=== PATIENT | female | born 1940 | race Caucasian/White ===

== ENCOUNTER → 2017-02-07 | Outpatient (CLI) | payer MEDICARE, MEDICAID ==
[~2017-02-07] MED LIST: ASPIRIN 32325 MG/TA1 PO; BREO IH; BYSTOLIC5 MG PO; CLEOCIN HC150 MG/CAP PO; CLEOCIN HCL300 MG PO; CO-Q1060 MG PO; DULERA1 ARO IH; FLONASE NASAL S16 GM NS; FLOVENT 44MCG I13 GM IH; LEVAQUIN 5500 MG/TA1 PO; LEVAQUIN 750MG750 M1 PO; MICARDIS HCT 121 TA1 PO; NATURE'S BLEND1 TA9 PO; NO HOME MEDICATIONS; NORVASC 5MG5 MG/TAB PO; PEPCID 20MG TAB20 MG PO; PLAVIX 75MG TAB75 MG PO; PRAVACHOL 40MG40 MG PO; PREDNISONE10 MG PO; PREDNISONE20 MG PO; PRELONE15 MG/5 ML PO; PRESERVISION1 SGL PO; PRIL40 PO; PRILOTC PO; PROAIR HFA0.09 MG/AC IH; PROVENTIL0.09 MG/A1 IH; RAYOS1 MG PO; RT SPIRIVA18 MCG IH; ZITHROMAX Z PA250 MG PO; ZOCOR 10MG10 MG PO; ZOCOR5 MG PO
== END ==
LOC: COL.RAD 07:48
DX: J32.4 Chronic pansinusitis (principal)

== ENCOUNTER → 2017-02-26 | Outpatient (CLI) | payer MEDICARE, MEDICAID | LOC: ZCOL.LAB 15:44 | DX: J32.4 Chronic pansinusitis (principal) ==

== ENCOUNTER 2017-10-18 08:26 | Day surgery (SDC) | payer MEDICARE, MEDICAID ==
[~2017-10-18] VITALS: Ht 162.6 cm; Wt 95.6 kg
[~2017-10-18 08:26] MED LIST changes: -CO-Q1060 MG PO; +FERROUS SU325 MG/TAB PO; +LUTEIN6 MG PO; +MEDROL 4MG DOSPA4 MG PO; +MUCINEX1200 MG PO; +NORCO 325 MG-51 TAB PO; +OMNICEF 300MG300 MG PO; +THE MEDICINE S200 M2 PO
[2017-10-18] MEDS ORDERED: OCUVITE1 TA1 PO (08:45)
[2017-10-18 09:06] VITALS: BP 128/73; PULSE 68; TEMP 97.3
[2017-10-18 10:15] VITALS: BP 137/67; PULSE 71; TEMP 97.7
[2017-10-18 10:30] VITALS: BP 129/71; PULSE 69
== END 2017-10-18 10:45 | disposition home or self-care (01) ==
LOC: SDCO 08:26
DX: K22.2 Esophageal obstruction (principal); K22.70 Barrett's esophagus without dysplasia; K44.9 Diaphragmatic hernia without obstruction or gangrene; K21.9 Gastro-esophageal reflux disease without esophagitis; E78.00 Pure hypercholesterolemia, unspecified; I10 Essential (primary) hypertension; J44.9 Chronic obstructive pulmonary disease, unspecified; Z90.710 Acquired absence of both cervix and uterus; Z88.4 Allergy status to anesthetic agent; Z86.73 Personal history of transient ischemic attack (TIA), and cerebral infarction without residual deficits
CPT/HCPCS: C1769; J2405; J2704; J3301; J7030

== ENCOUNTER 2017-12-16 14:56 | Outpatient (CLI) | payer MEDICARE, MEDICAID ==
[~2017-12-16] VITALS: Ht 162.6 cm; Wt 94.4 kg
[~2017-12-16 14:56] MED LIST changes: +OCUVITE1 TA1 PO
[2017-12-16 15:31] VITALS: BP 124/70; PULSE 82; TEMP 98
== END 2017-12-16 16:33 | disposition hospice, inpatient (51) ==
LOC: EUO 14:56
DX: M81.0 Age-related osteoporosis without current pathological fracture (principal); R50.9 Fever, unspecified; M79.1 Myalgia
CPT/HCPCS: J3489

== ENCOUNTER → 2018-05-09 | Outpatient (CLI) | payer MEDICARE, MEDICAID | LOC: ZCOL.LAB 16:18 | DX: J32.9 Chronic sinusitis, unspecified (principal) ==

== ENCOUNTER 2018-08-08 10:53 | Inpatient (IN) | payer MEDICARE, MEDICAID ==
[~2018-08-08] VITALS: Ht 162.6 cm; Wt 83.6 kg
[2018-08-08 11:52] VITALS: BP 117/56; PULSE 109; TEMP 98.1
[2018-08-08] MEDS ORDERED: BREO (12:39)
[2018-08-08] MEDS ORDERED: SALINE 45 ML45 ML NS (12:42)
--- NOTE | 2018-08-08 13:00 | NUR ---
MD Nena and NINOSKA Hoffman notified of pt arrival. VORB for 2L NasalCanula for SpO2 of 87% on room-air.
[2018-08-08 14:49] LABS: BASO # 0.1 (0.0-0.2); BASO % 0.4 % (0.0-2.0); GRAN # 16.4 (1.4-6.5); GRAN % 85.9 % (42.2-75.2); HEMATOCRIT 39.1 % (37.0-47.0); HEMOGLOBIN 12.3 g/dl (12.5-16.0); LYMPH # 1.4 (1.2-3.4); LYMPH % 7.4 % (20.0-51.0); MEAN CELL VOLUME 77 fl (80.0-100.0); MEAN CORPUSCULAR HEMOGLOBIN 24 pg (27.0-31.0); MEAN CORPUSCULAR HGB CONC 32 g/dl (33.0-37.0); MEAN PLATELET VOLUME 9.6 fl (7.4-10.4); MONO # 1.1 (0.1-0.6); MONO % 5.6 % (1.7-9.3); PLATELET COUNT 307 K/mm3 (130-400); RED BLOOD COUNT 5.09 M/mm3 (4.10-5.30); REDCELL DISTRIBUTION WIDTH-CV 18.3 % (11.5-14.5)
[2018-08-08 14:59] LABS: ALBUMIN 3.6 gm/dL (3.5-5.0); BILIRUBIN,TOTAL 0.7 mg/dL (0.0-1.0); CALCIUM 8.7 mg/dL (8.4-10.2); CREATININE, serum 1.1 mg/dL (0.52-1.25)
[2018-08-08 16:53] VITALS: BP 101/63; PULSE 107; TEMP 99.7
--- NOTE | 2018-08-08 17:59 | NUR ---
Pt off unit for CT scan
--- NOTE | 2018-08-08 19:53 | NUR ---
PT IS IN ISOLATION SO WE CANNOT USE OUR ADVAIR SO PT SAID SHE WOULD HAVE SOMEONE BRING IN HER BREO.
[2018-08-08 20:09] VITALS: BP 107/52; PULSE 105; TEMP 98.8
[2018-08-08 23:15] VITALS: BP 101/52; PULSE 104; TEMP 99.4
[2018-08-09 04:25] VITALS: BP 111/54; PULSE 100; TEMP 98.1
--- NOTE | 2018-08-09 05:09 | NUR ---
PT HAS TOLERATED CARES WELL THIS NOC. VOICED COMPLAINT ABOUT HAVING STUFFY NOSE AND WANTING SOME SALINE SPRAY FOR NOSE, WILL BRING UP TO HOSPITALIST AT SOME POINT. NO OTHER ISSUES OR CONSERNS VOICED. IV FLUIDS INFUSING AND RECEIVEING ABX SCHEDULED. IV INFUSING WITHOUT ISSUE. NO C/O PAIN VOICED. O2 SATS HAVE BEEN AROUND 92-94% ON 1-2 OF O2, NO LABORED BREATHING NOTED. NO FEVERS NOTED THIS SHIFT.
--- NOTE | 2018-08-09 06:26 | NUR ---
UPON ENTERING PT ROOM THIS AM, PT SITTING ON EDGE OF BED CAUGHING AND SPITTING MUCUS. PT STATED TO THIS NURSE THAT SHE COUGHED SOMETHING UP. THIS NURSE COLLECTED SPECIMIN IN CONTAINER. ABOUT A QUARTER SIZED CHUNK THAT IS BROWN AND HARD COLLECTED, SPECIMEN WAS COVERED IN YELLOW MUCUS.
[2018-08-09 07:53] VITALS: BP 111/57; PULSE 95; TEMP 98.8
[2018-08-09 08:38] LABS: BASO # 0.1 (0.0-0.2); BASO % 0.6 % (0.0-2.0); EOS % 0.3 % (0-4.0); GRAN # 12.9 (1.4-6.5); GRAN % 81.9 % (42.2-75.2); HEMOGLOBIN 10.9 g/dl (12.5-16.0); LYMPH # 1.5 (1.2-3.4); LYMPH % 9.4 % (20.0-51.0); MEAN CELL VOLUME 78 fl (80.0-100.0); MEAN CORPUSCULAR HEMOGLOBIN 24 pg (27.0-31.0); MEAN CORPUSCULAR HGB CONC 31 g/dl (33.0-37.0); MEAN PLATELET VOLUME 10.1 fl (7.4-10.4); MONO # 1.1 (0.1-0.6); MONO % 7.1 % (1.7-9.3); PLATELET COUNT 296 K/mm3 (130-400); RED BLOOD COUNT 4.49 M/mm3 (4.10-5.30); REDCELL DISTRIBUTION WIDTH-CV 18.3 % (11.5-14.5)
[2018-08-09 08:39] LABS: HEMATOCRIT 34.8 % (37.0-47.0)
[2018-08-09 08:41] LABS: CREATININE, serum 0.88 mg/dL (0.52-1.25); POTASSIUM 3.5 mmol/L (3.4-5.0)
--- NOTE | 2018-08-09 10:32 | NUR ---
Assessment complete.patient awake,a/ox3.exp wheezes to right lung.denies pain or discomfort at this time.pt has intermittent coughing.IVF infusing.reports improved appetite.remains opn droplet precaution for RVP pending. patient denies any other needs at this time.call light in reach
[2018-08-09 11:43] VITALS: BP 103/60; PULSE 93; TEMP 98.5
--- NOTE | 2018-08-09 13:11 | NUR ---
Chaplain dumont and offered support with patient.
--- NOTE | 2018-08-09 13:21 | NUR ---
SW met with patient about discharge plans. Patient lives independently at home by herself but her daughter lives close by. Patient's PCP is Dr Jinny Ley and she obtains prescriptions from [facility]. Patient does not use any home health services or DME. Patient does not have a DPOA but would like to complete form. SW provided. SW will return when patient is ready to sign. SW does not anticipate any discharge needs.
[2018-08-09 16:24] VITALS: BP 126/67; PULSE 104; TEMP 99.5
--- NOTE | 2018-08-09 18:37 | NUR ---
pt resting in bed at this time. Iv antibiotics infusing. consulted.pt remains on droplet precaution for RVP pending.continues to have intermittent productive cough.reports sputum is clear.oxygen at 2l/nc.will continue to monitor.call light in reach
--- NOTE | 2018-08-09 18:57 | NUR ---
report given to BARRY Land
--- NOTE | 2018-08-09 19:44 | NUR ---
PT HAS BEEN AMBULATING IN ROOM. PT WAS SITTING IN RECLINER AND HAS GOTTEN IN BED. HOB ELEVATED TO 30 DEGREE ANGLE. PT DENIES PAIN OR DISCOMFORT AT THIS TIME. NO NEEDS AND CALL LIGHT WITHIN REACH.
[2018-08-09 19:55] VITALS: BP 129/60; PULSE 107; TEMP 98.8
[2018-08-09 23:40] VITALS: BP 107/45; PULSE 101; TEMP 100.5
--- NOTE | 2018-08-10 00:35 | NUR ---
PT HAD TEMP OF 100.5, TYLENOL GIVEN FOR FEVER. PT GOT UP TO USE THE BATHROOM AND THEN WENT BACK TO BED. AMBULATED WITHOUT ASSISTED DEVICE AND GAIT WAS STEADY. PT DENIES ANY PAIN OR DISCOMFORT. CALL LIGHT WITHIN REACH.
[2018-08-10 02:28] VITALS: TEMP 98.4
[2018-08-10 05:18] VITALS: BP 106/46; PULSE 83; TEMP 97.9
--- NOTE | 2018-08-10 06:35 | NUR ---
PT HAS BEEN SLEEPING WELL SINCE GIVEN COUGH MEDICATION. PT WAS GIVEN HER MORNING MEDICATION AND ADVISED THAT SHE FINALLY GOT TO SLEEP WITH NO PROBLEMS. PT DENIES PAIN OR DISCOMFORT, RESP EVEN AND UNLABORED, CALL LIGHT WITHIN REACH.
[2018-08-10 08:11] VITALS: BP 125/57; PULSE 93; TEMP 98.6
[2018-08-10 09:13] LABS: BASO # 0.1 (0.0-0.2); BASO % 0.5 % (0.0-2.0); EOS # 0.1 (0.0-0.7); EOS % 0.9 % (0-4.0); GRAN # 10.3 (1.4-6.5); GRAN % 76.2 % (42.2-75.2); HEMOGLOBIN 10.8 g/dl (12.5-16.0); LYMPH % 14.8 % (20.0-51.0); MEAN CELL VOLUME 78 fl (80.0-100.0); MEAN CORPUSCULAR HEMOGLOBIN 24 pg (27.0-31.0); MEAN CORPUSCULAR HGB CONC 31 g/dl (33.0-37.0); MEAN PLATELET VOLUME 9.8 fl (7.4-10.4); MONO # 0.9 (0.1-0.6); MONO % 6.9 % (1.7-9.3); PLATELET COUNT 282 K/mm3 (130-400); RED BLOOD COUNT 4.47 M/mm3 (4.10-5.30); REDCELL DISTRIBUTION WIDTH-CV 18.2 % (11.5-14.5)
[2018-08-10 09:22] LABS: HEMATOCRIT 34.8 % (37.0-47.0)
[2018-08-10 09:26] LABS: CREATININE, serum 0.8 mg/dL (0.52-1.25); POTASSIUM 3.2 mmol/L (3.4-5.0)
--- NOTE | 2018-08-10 09:34 | NUR ---
Assessment complete.patient awake,a/ox3.denies pain or discomfort at this time.reports intermittent cough.oxygen at 3l/nc.exp wheezes throughout.ivf fluids infusing.Incentive spirometer at bedside.education provided on using it and how often-pt voiced understanding.patient denies any other needs at this time.will continue monitor.
[2018-08-10 10:31] LABS: MAGNESIUM 2.3 mg/dL (1.6-2.3)
[2018-08-10 11:21] VITALS: BP 131/58; PULSE 88; TEMP 98.6
--- NOTE | 2018-08-10 13:10 | NUR ---
pt resting in recliner.c/o of SOB with exertion.encouraged patient to call for help and keep oxygen on at all times.pottasium replaced.IVF discontinued.will continue to monitor.call light in reach
[2018-08-10 16:59] VITALS: BP 128/66; PULSE 96; TEMP 102.7
--- NOTE | 2018-08-10 17:56 | NUR ---
PT HAD TEMP OF 102.5.PRN TYLENOL GIVEN.WILL REASSESS.
--- NOTE | 2018-08-10 19:18 | NUR ---
PT RESTING IN RECLINER.REPORT GIVEN TO BARRY BILLINGSLEY.PT DENIES NEEDS.CALL LIGHT IN REACH
--- NOTE | 2018-08-10 19:18 | NUR ---
Report received from Angelina REDDY. Resting in bed. Denies needs. Call light in reach.
[2018-08-10 19:46] VITALS: BP 130/60; PULSE 97; TEMP 97.6
--- NOTE | 2018-08-10 21:10 | NUR ---
Sitting at bedside. Assessment complete. Right lower lobe crackles otherwise clear. Heart sounds normal, tachycardic. Bowels active x4. No edema noted at this time. Reports shortness of breath with ambulation. Denies pain. INT to right forearm flushes well without complications. Denies pain. Denies needs at this time. Call light in reach.
--- NOTE | 2018-08-10 23:41 | NUR ---
Resting in bed. Denies needs. Denies pain. Call light in reach.
--- NOTE | 2018-08-11 01:10 | NUR ---
Resting in bed asleep. Call light in reach.
[2018-08-11 02:39] VITALS: BP 125/57; PULSE 94; TEMP 98.6
--- NOTE | 2018-08-11 04:25 | NUR ---
Resting in bed. Denies needs. Call light in reach.
--- NOTE | 2018-08-11 06:05 | NUR ---
Patient called for water. Upon arrival in room, patient states "I am ready to be with Maikol." Questioned patient on status. Patient stated entire left lung "hurts" and having shortness of air at this time. Patient 94% on 3 liters of oxygen. Crackles in left lung heard in all posada. Respiratory, Crystal contacted for breathing treatment at this time. Will monitor and pass on information to next shift.
--- NOTE | 2018-08-11 06:40 | NUR ---
Report given to BARRY Christopher. Patient resting in bed. Continues to report left lung pain after breathing treatment. Otherwise uneventful night. Slept well throughout night. Denies other needs at this time. Request to see Dr. Torres this AM. Call light in reach.
[2018-08-11 07:42] VITALS: BP 130/70; PULSE 99; TEMP 98.6
--- NOTE | 2018-08-11 08:28 | NUR ---
Pt lying in bed complaining of shortness of breath, put head of bed up. Wheezes auscultated on expiration. Denies any pain right now, said in the middle of the night she had pain to her left lung when she repositioned. Completed morning assessment and administered medication. Pt denies wanting to eat any food. Call light in reach.
[2018-08-11 11:56] VITALS: BP 142/70; PULSE 94; TEMP 98.1
--- NOTE | 2018-08-11 12:35 | NUR ---
First visit from the entry level programmer. No needs right now.
--- NOTE | 2018-08-11 12:36 | NUR ---
Follow up visit from the core dropper. Chaplain dumont with patient.
[2018-08-11 15:19] VITALS: BP 134/68; PULSE 99; TEMP 98.2
--- NOTE | 2018-08-11 18:33 | NUR ---
Pt lying in bed with eyes closed, awakens to verbal stimuli. Breathing is even and unlabored while resting. Pt denies any needs, denied wanting to order food. Advised pt to maybe order a small snack for later in the night. Pt Call light in reach.
[2018-08-11 19:18] VITALS: BP 138/65; PULSE 94; TEMP 97.7
[2018-08-11 23:29] VITALS: BP 133/73; PULSE 94; TEMP 97.7
[2018-08-12 03:28] VITALS: BP 152/82; PULSE 87; TEMP 97.7
--- NOTE | 2018-08-12 04:11 | NUR ---
PT HAD UNEVENTFUL NOC. PT REMAINS HAVING C/O GI UPSET AND LOOSE STOOLS. SCHEDULED MEDS GIVEN, NO NEED FOR PRN MEDS VOICED OVER NIGHT. PT DID INQUIRE ABOUT 6-MP MED, NOTIFIED PT THAT AT THIS TIME IT HASNT BEEN STARTED. NO OTHER QUESTIONS OR CONSERNS VOICED OVERNIGHT.
--- NOTE | 2018-08-12 04:16 | NUR ---
PT HAD UNEVENTFUL NOC. NO C/O PAIN. APPEARED TO HAVE SLEPT WELL. IV ABX INFUSING ORDERED WITHOUT ISSUES. NO QUESTIONS OR CONSERNS VOICED OVER NOC. PLEASENT AND COOPERATIVE WITH CARES. PT REMAINS ON 2L O2 THIS SHIFT.
[2018-08-12 07:50] VITALS: BP 137/69; PULSE 84; TEMP 97.9
[2018-08-12 07:54] LABS: BASO % 0.3 % (0.0-2.0); EOS % 0.1 % (0-4.0); GRAN # 7.6 (1.4-6.5); GRAN % 75.8 % (42.2-75.2); HEMOGLOBIN 10.8 g/dl (12.5-16.0); LYMPH # 1.4 (1.2-3.4); LYMPH % 14.3 % (20.0-51.0); MEAN CELL VOLUME 78 fl (80.0-100.0); MEAN CORPUSCULAR HEMOGLOBIN 24 pg (27.0-31.0); MEAN CORPUSCULAR HGB CONC 31 g/dl (33.0-37.0); MEAN PLATELET VOLUME 9.6 fl (7.4-10.4); MONO # 0.7 (0.1-0.6); MONO % 6.8 % (1.7-9.3); PLATELET COUNT 346 K/mm3 (130-400); RED BLOOD COUNT 4.44 M/mm3 (4.10-5.30); REDCELL DISTRIBUTION WIDTH-CV 18.2 % (11.5-14.5)
[2018-08-12 07:56] LABS: CALCIUM 8.4 mg/dL (8.4-10.2); CREATININE, serum 0.86 mg/dL (0.52-1.25); POTASSIUM 3.4 mmol/L (3.4-5.0)
[2018-08-12 08:03] LABS: HEMATOCRIT 34.5 % (37.0-47.0)
--- NOTE | 2018-08-12 11:04 | NUR ---
Assessment completed, alert/oriented, vital signs stable, stil on IV abx and has been Afebrile/ talks about switching to PO abx, she reports feeling better and breathing is better, lungs still diminished with fine crackles, still requiring supplemental oxygen, heart RRR/distal pulses are palpable, working with PT/OT, he is up in the chair, denies other needs at this time
[2018-08-12 12:16] VITALS: BP 141/67; PULSE 87; TEMP 97.4
--- NOTE | 2018-08-12 14:11 | NUR ---
RA SPO2 85% PLACED ON 1 LPM NC/
--- NOTE | 2018-08-12 15:12 | NUR ---
LAZARO and LAZARO student met with the patient to review discharge plan. The patient reports that she still plans to return home upon discharge. The patient reports that PT has come to meet with her, but that she has not worked with them yet. SW encouraged the patient to work with PT for recommendations. The patient also completed a DPOA-HC. She designated her daughters. LAZARO and LAZARO student witnessed the patient sign. The patient was provided with the original and some copies. A copy was placed in the patient's chart. The patient is also currently requiring oxygen. LAZARO to continue to follow.
[2018-08-12 15:53] VITALS: BP 138/72; PULSE 94; TEMP 98.3
--- NOTE | 2018-08-12 19:01 | NUR ---
Report received from BARRY Johnson. Resting bed. Denies needs. Call light in reach.
[2018-08-12 19:45] VITALS: BP 135/66; PULSE 93; TEMP 97.6
--- NOTE | 2018-08-12 20:25 | NUR ---
Patient sitting at bedside. Assessment complete. All lung posada dimished with expiratory wheezing present. Patient current on 1 liter nasal cannula. Denies shortness of breath. Heart sounds normal. Bowels active x4. Pulses strong throughout. No edema noted. Denies pain. IV in left wrist leaking when flushed. Changed to right forearm. Denies needs at this time. Call light in reach. Provided patient with warm wipes for sponge bath at this time.
--- NOTE | 2018-08-12 22:51 | NUR ---
Resting in bed. Denies needs. Call light in reach.
[2018-08-13] VITALS (7 sets, daily range): BP systolic 114–151; BP diastolic 53–74; PULSE 78–90; TEMP 97.2–98.9
--- NOTE | 2018-08-13 04:06 | NUR ---
Resting in bed. Denies needs. Call light in reach.
--- NOTE | 2018-08-13 06:25 | NUR ---
Patient had uneventful night. Resting in bed this AM. Denies needs. Call light in reach.
--- NOTE | 2018-08-13 07:14 | NUR ---
Report given to BARRY Fernández.
--- NOTE | 2018-08-13 09:30 | NUR ---
Pt is A+OX3, pleasant, denies SOB and pain, 0.5 L oxygen applied via NC. Lungs relatively clear. IV site to RFA free of redness, swelling. Pt c/o small amount of white sputum with coughing. Afebrile. Call gregg noguera reach
--- NOTE | 2018-08-13 16:41 | NUR ---
LAZARO and SW student met with the patient and patient's daughter to discuss physical therapies recommendation of outpatient therapy. The patient reports that she has received outpatient therapy at [facility] in the past, but may be interested in swing bed now at [facility] upon discharge. The patient reports that she would like to discuss this option with Dr. Torres in the morning before making a final decision. SW to follow up with the patient tomorrow and continue to follow.
--- NOTE | 2018-08-13 18:43 | NUR ---
Report given to Pearl REDDY, pt denies needs, 0.5 liter oxygen applied via NC, she denies SOB, vitals stable through shift, pt had many visitors and walked about room independnetnly. Call gregg clark
--- NOTE | 2018-08-13 18:54 | NUR ---
Report received from BARRY Fernández.
--- NOTE | 2018-08-13 19:15 | NUR ---
Resting in bed. Assessment complete. Left lower lobe crackles, otherwise clear. Heart sounds normal. Bowels active x4. Pulses strong. Bilateral lower leg edema +1, has feet dangling out of bed. Educated patient to elevate legs. Denies pain. Provided shampoo to wash hair. Denies other needs. Call light in reach.
[2018-08-14] VITALS (8 sets, daily range): BP systolic 100–153; BP diastolic 57–89; PULSE 74–122; TEMP 97.3–99.4
--- NOTE | 2018-08-14 00:33 | NUR ---
Resting in bed. Call light in reach.
--- NOTE | 2018-08-14 02:20 | NUR ---
Resting in bed. Denies needs. call light in reach.
[2018-08-14 06:37] LABS: CALCIUM 8.3 mg/dL (8.4-10.2); CREATININE, serum 0.74 mg/dL (0.52-1.25)
--- NOTE | 2018-08-14 07:25 | NUR ---
Resting in bed this AM. Assessment complete. Right lower lobe crackles, otherwise clear. Heart sounds normal. Bowels active x4. Pulses strong throughout. No edema noted. Denies pain at this time. Denies needs. Call light in reach.
[2018-08-14] MEDS ORDERED: CLEOCIN HCL300 MG PO (10:01)
[2018-08-14] MEDS ORDERED: PREDNISONE10 MG PO (10:03)
[2018-08-14] MEDS ORDERED: INCRUSE EL62.5 MCG/A IH (10:04)
--- NOTE | 2018-08-14 12:53 | NUR ---
Report given to BARRY Joshi. Up to restroom at this time. Denied needs.
--- NOTE | 2018-08-14 13:15 | NUR ---
LAZARO and LAZARO student attended clinical rounds. The hospitalist discussed swing bed vs home. The patient reports that she would be interested in swing bed. LAZARO and LAZARO student then followed up with the patient. LAZARO discussed options and presented and explained the patient choice form. The patient preferred [facility]. Patient choice form signed by the patient and she was provided a copy. LAZARO contacted Stacey at [facility] for referral. SW awaiting their screening.
--- NOTE | 2018-08-14 13:40 | NUR ---
Primary nurse was assisted with [phone] patient care by [facility] student Yasmin Guzman and [facility] instructor Carolyn Knapp RN-.
--- NOTE | 2018-08-14 13:41 | NUR ---
Reported off to primary RN at [phone]
[2018-08-14] MEDS ORDERED: K-TAB20 PO (14:38)
--- NOTE | 2018-08-14 15:00 | NUR ---
Report given to BARRY Cam [facility]
--- NOTE | 2018-08-14 15:01 | NUR ---
PT REFUSED. GETTING DRESSED TO GO HOME.
--- NOTE | 2018-08-14 15:43 | NUR ---
Stacey, at [facility], reports that they can accept the patient for swing bed. [facility]'s nurse requested that the patient leave the hospital around 1600. LAZARO and SW student informed the patient. The patient reports that she will either have a friend or her daughter transport her. The patient will also need oxygen for transport. The patient is to use a portable tank from our hospital to [facility]. Stacey reports that they will then return the portable tank back to our hospital. The patient is to discharge today, 08/14, to [facility] for [facility]ing Bed. Transportation to be by private car, via the patient's friend or daughter. LAZARO also presented and explained the IM form to the patient. The patient verbalized understanding, signed, and she was provided a copy. No additional needs at this time.
--- NOTE | 2018-08-14 15:56 | NUR ---
IV removed from right forearm, Tip intact, patient tolerated well. Gauze and coban applied. Patient waiting on daughter to transfer patient to [place]. Call light within reach
--- NOTE | 2018-08-14 16:14 | NUR ---
Patient transfered by wheelchair by nurse. Personal belongings and discharge packet with patient. No further needs expressed from patient. Patient on .5L oxygen. Hospital oxygen tank given to patient. [facility] states they will bring the oxygen tank back.
== END 2018-08-14 16:16 | disposition swing bed (61) | DRG 871 ==
LOC: MEDICAL 10:53
PROVIDERS: Internal Medicine Critical Care Medicine; Physician Assistant; ADMIT Hospitalist
DX: A41.9 Sepsis, unspecified organism (principal); J18.1 Lobar pneumonia, unspecified organism; J96.01 Acute respiratory failure with hypoxia; J44.0 Chronic obstructive pulmonary disease with (acute) lower respiratory infection; R04.2 Hemoptysis; J44.1 Chronic obstructive pulmonary disease with (acute) exacerbation; E44.0 Moderate protein-calorie malnutrition; E87.1 Hypo-osmolality and hyponatremia; I10 Essential (primary) hypertension; Z77.22 Contact with and (suspected) exposure to environmental tobacco smoke (acute) (chronic); Z86.73 Personal history of transient ischemic attack (TIA), and cerebral infarction without residual deficits; J32.4 Chronic pansinusitis; G47.33 Obstructive sleep apnea (adult) (pediatric); K21.9 Gastro-esophageal reflux disease without esophagitis; K22.2 Esophageal obstruction; E87.6 Hypokalemia; D64.9 Anemia, unspecified; Z22.322 Carrier or suspected carrier of Methicillin resistant Staphylococcus aureus; Z68.28 Body mass index [BMI] 28.0-28.9, adult
CPT/HCPCS: 99222-AI; 99232-AI; 99233-AI; 99239; A4216; A9284; J0456; J0696; J1650; J2543; J3370; J7030; J7050; J7512; Q9967

== ENCOUNTER 2018-09-05 09:30 | Day surgery (SDC) | payer MEDICARE, MEDICAID ==
[~2018-09-05] VITALS: Ht 160 cm; Wt 87.3 kg
[~2018-09-05 09:30] MED LIST changes: +BREO; +INCRUSE EL62.5 MCG/A IH; +K-TAB20 PO; +SALINE 45 ML45 ML NS
[2018-09-05] MEDS ORDERED: RT ADVAIR 128 DISKUS IH (10:06)
[2018-09-05 10:07] VITALS: BP 144/93; PULSE 87; TEMP 98.5
[2018-09-05 11:35] VITALS: BP 144/93; PULSE 66; TEMP 98.2
[2018-09-05 12:05] VITALS: BP 135/76; PULSE 72
--- NOTE | 2018-09-05 12:24 | NUR ---
PATIENT RETURNS FROM OR VIA CART. POST OP VS STARTED. RESPIRATIONS EVEN AND UNLABORED. LUNGS CLEAR BILATERALLY. DRINKING WATER. DENIES NAUSEA OR PAIN. FRIEND AT BEDSIDE. CALL LIGHT WITHIN REACH. WILL CONTINUE TO MONITOR.
--- NOTE | 2018-09-05 12:27 | NUR ---
PATIENT REQUEST SUGAR FREE ANAMARIA. CALL LIGHT IN REACH.
--- NOTE | 2018-09-05 13:09 | NUR ---
TOERATED JELLO AND WATER. VS STABLE. CALL LIGHT IN REACH.
--- NOTE | 2018-09-05 13:10 | NUR ---
PATIENT RECIEVED DISCHARGE INSTRUCTIONS, VERBALIZED UNDERSTADNING. IV DC'D. PATIENT TAKEN VIA WHEELCHAIR TO PERSONAL VEHICHLE WITH DOCUMENT COORDINATOR.
== END 2018-09-05 13:18 | disposition home or self-care (01) ==
LOC: SDCO 09:30
DX: K22.2 Esophageal obstruction (principal); K44.9 Diaphragmatic hernia without obstruction or gangrene; K22.70 Barrett's esophagus without dysplasia; I10 Essential (primary) hypertension; E78.00 Pure hypercholesterolemia, unspecified; K21.9 Gastro-esophageal reflux disease without esophagitis; J44.9 Chronic obstructive pulmonary disease, unspecified; G47.33 Obstructive sleep apnea (adult) (pediatric); Z90.710 Acquired absence of both cervix and uterus; Z86.73 Personal history of transient ischemic attack (TIA), and cerebral infarction without residual deficits
CPT/HCPCS: C1726; J2704; J3301; J7120

== ENCOUNTER 2018-12-02 15:12 | Outpatient (CLI) | payer MEDICARE, MEDICAID ==
[~2018-12-02] VITALS: Ht 160 cm; Wt 84.0 kg
[~2018-12-02 15:12] MED LIST changes: +RT ADVAIR 128 DISKUS IH
[2018-12-02 15:30] VITALS: BP 103/62; PULSE 85; TEMP 98.2
[2018-12-02] MEDS ORDERED: RT ADVAIR HFA 1112 G IH (15:43)
[2018-12-02] MEDS ORDERED: INCRUSE EL62.5 MCG/A IH (15:43)
[2018-12-02] MEDS ORDERED: PLAVIX 75MG TAB75 MG PO (15:45)
[2018-12-02] MEDS ORDERED: PEPCID 20MG TAB20 MG PO (15:47)
[2018-12-02] MEDS ORDERED: BACTROBAN 22GM22 GM NAS (15:47)
[2018-12-02] MEDS ORDERED: OCEAN NASAL SPR45 ML NS (15:49)
[2018-12-02] MEDS ORDERED: MYRBETR50MG PO (15:50)
--- NOTE | 2018-12-02 16:40 | NUR ---
Pt kole reclast well. Pt discharged per ambulation with walking stick.
== END 2018-12-02 16:59 | disposition home or self-care (01) ==
LOC: EUO 15:12
DX: M81.0 Age-related osteoporosis without current pathological fracture (principal)
CPT/HCPCS: J3489

== ENCOUNTER 2020-01-10 14:18 | Emergency (ER) | payer MEDICARE, MEDICAID ==
[~2020-01-10] VITALS: Ht 165.1 cm; Wt 69.5 kg
[~2020-01-10 14:18] MED LIST changes: +BACTROBAN 22GM22 GM NAS; +MYRBETR50MG PO; +OCEAN NASAL SPR45 ML NS; +RT ADVAIR HFA 1112 G IH
[2020-01-10 14:26] VITALS: TEMP 98.4
[2020-01-10 14:51] LABS: BASO # 0.1 (0.0-0.2); BASO % 0.6 % (0.0-2.0); EOS % 0.3 % (0-4.0); GRAN # 5.1 (1.4-6.5); GRAN % 65.6 % (42.2-75.2); HEMATOCRIT 46.2 % (37.0-47.0); HEMOGLOBIN 14.9 g/dl (12.5-16.0); LYMPH # 2.1 (1.2-3.4); LYMPH % 26.9 % (20.0-51.0); MEAN CELL VOLUME 88 fl (80.0-100.0); MEAN CORPUSCULAR HEMOGLOBIN 28 pg (27.0-31.0); MEAN CORPUSCULAR HGB CONC 32 g/dl (33.0-37.0); MEAN PLATELET VOLUME 9.8 fl (7.4-10.4); MONO # 0.5 (0.1-0.6); MONO % 6.3 % (1.7-9.3); PLATELET COUNT 316 K/mm3 (130-400); RED BLOOD COUNT 5.26 M/mm3 (4.10-5.30); REDCELL DISTRIBUTION WIDTH-CV 16.3 % (11.5-14.5)
[2020-01-10 14:58] LABS: ALBUMIN 4.2 gm/dL (3.5-5.0); BILIRUBIN,TOTAL 0.4 mg/dL (0.0-1.0); CALCIUM 9.3 mg/dL (8.4-10.2); CREATININE, serum 0.86 (0.52-1.25); POTASSIUM 3.7 mmol/L (3.4-5.0); TOTAL PROTEIN 7.9 gm/dL (6.4-8.2)
[2020-01-10 17:07] VITALS: PULSE 82
[2020-01-10 17:33] VITALS: BP 146/81
== END 2020-01-10 18:20 | disposition home or self-care (01) ==
LOC: COL.ER 14:18
PROVIDERS: Family Medicine
DX: T18.128A Food in esophagus causing other injury, initial encounter (principal); K22.2 Esophageal obstruction; J44.9 Chronic obstructive pulmonary disease, unspecified; Z79.02 Long term (current) use of antithrombotics/antiplatelets
CPT/HCPCS: C1726; J2704; J7120

== ENCOUNTER 2020-07-24 10:30 | Emergency (ER) | payer MEDICARE, MEDICAID ==
[~2020-07-24] VITALS: Ht 165.1 cm; Wt 70.0 kg
[2020-07-24 10:57] VITALS: BP 167/90; TEMP 96.5
[2020-07-24 12:22] VITALS: PULSE 65
== END 2020-07-24 12:22 | disposition home or self-care (01) ==
LOC: COL.ER 10:30
DX: S62.321A Displaced fracture of shaft of second metacarpal bone, left hand, initial encounter for closed fracture (principal); J44.9 Chronic obstructive pulmonary disease, unspecified; Z79.02 Long term (current) use of antithrombotics/antiplatelets; Z88.4 Allergy status to anesthetic agent; W19.XXXA Unspecified fall, initial encounter

== ENCOUNTER 2020-10-07 10:03 | Emergency (ER) | payer MEDICARE, MEDICAID ==
[~2020-10-07] VITALS: Ht 165.1 cm; Wt 70.0 kg
[2020-10-07 13:28] VITALS: BP 167/93; PULSE 70; TEMP 97.5
== END 2020-10-07 13:28 | disposition home or self-care (01) ==
LOC: COL.ER 10:03
DX: T18.128A Food in esophagus causing other injury, initial encounter (principal); I10 Essential (primary) hypertension; J44.9 Chronic obstructive pulmonary disease, unspecified; Z88.4 Allergy status to anesthetic agent; Z79.51 Long term (current) use of inhaled steroids; Z79.899 Other long term (current) drug therapy; W45.8XXA Other foreign body or object entering through skin, initial encounter
CPT/HCPCS: J2704; J7030

== ENCOUNTER 2020-11-16 14:27 | Outpatient (CLI) | payer MEDICARE, MEDICAID ==
[2020-11-16] MEDS ORDERED: TRELEGY ELLIPT1 EACH IH (16:32)
[2020-11-16 16:33] VITALS: BP 156/95; PULSE 68; TEMP 98.4
== END 2020-11-16 16:50 | disposition home or self-care (01) ==
LOC: EUO 14:27
DX: M81.0 Age-related osteoporosis without current pathological fracture (principal)
CPT/HCPCS: J3489